=== PATIENT | male | born 1950 | race Caucasian/White ===

== ENCOUNTER 2021-06-26 12:50 | Inpatient (IN) ==
[2021-06-26] MEDS ORDERED: *HR* FentaNYL (PF) 100 MCG/2 ML VIAL IVP ONE (13:20)
[2021-06-26] MEDS ORDERED: Isovue-370 500 ML BOTTLE IVP ONE (14:08)
[2021-06-26 14:32] LABS: Basophils % 0.2 %; Eosinophils % 0.2 %; Hematocrit 44.1 % (37.5-50.1); Hemoglobin 14.9 g/dL (12.9-16.9); Immature Granulocytes % 0.4 % (0-4); Lymphocytes # 1.2 K/mcL (0.6-4.6); Lymphocytes % 14.2 %; Mean Corpuscular HGB Conc 33.8 g/dL (31.6-35.5); Mean Corpuscular Hemoglobin 32.6 pg (28.0-33.3); Mean Corpuscular Volume 96.5 fL (83.0-100.0); Mean Platelet Volume 8.8 fL (9.4-12.4); Monocytes % 12.4 %; Platelet Count 238 K/mcL (140-400); Red Blood Count 4.57 M/mcL (4.19-5.50); Red Cell Distribution Width 12.7 % (11.5-14.5); Segmented Neutrophils % 72.6 %; White Blood Count 8.3 K/mcL (4.3-11.1)
[2021-06-26 14:52] LABS: BUN/Creatinine Ratio 12 (6-26); Blood Urea Nitrogen 11 mg/dL (8-23); Calcium 9.2 mg/dL (8.6-10.3); Carbon Dioxide 24 mEq/L (23-29); Chloride 96 mEq/L (98-107); Glucose 122 mg/dL (70-105); Osmolality,Calculated 271 (280-300); Potassium 4.8 mEq/L (3.5-5.1); Sodium 130 mEq/L (136-145); eGFR For African Americans > 60 (> 60); eGFR For Non-African Americans > 60 (> 60)
[2021-06-26] MEDS ORDERED: Morphine Sulfate 2 MG/ML SYRINGE IVP ONE (15:19)
[2021-06-26] MEDS ORDERED: Naloxone 0.4 MG/ML INJ IVP PRN (17:25)
[2021-06-26] MEDS ORDERED: Ondansetron 4 MG/2 ML VIAL IVP PRN (17:25)
[2021-06-26] MEDS ORDERED: Ipratropium/Albuterol Neb 3 ML IH PRN (17:43)
[2021-06-26] MEDS: *HR* Heparin 5,000 UNIT/ML VIAL SQ SCH (19:22)
[2021-06-26] MEDS: Ketorolac 30 MG/ML VIAL IVP PRN (19:31)
[2021-06-27] MEDS: Morphine Sulfate 2 MG/ML SYRINGE IVP PRN ×3 (00:47→11:45)
[2021-06-27 03:56] LABS: Basophils % 0.5 %; Eosinophils # 0.1 K/mcL (0.0-0.6); Eosinophils % 2.2 %; Hematocrit 39.9 % (37.5-50.1); Immature Granulocytes % 0.5 % (0-4); Lymphocytes # 1.2 K/mcL (0.6-4.6); Lymphocytes % 20.7 %; Mean Corpuscular HGB Conc 32.8 g/dL (31.6-35.5); Mean Corpuscular Hemoglobin 32.2 pg (28.0-33.3); Mean Platelet Volume 8.9 fL (9.4-12.4); Monocytes % 15.8 %; Neutrophils # 3.6 K/mcL (1.6-8.9); Platelet Count 208 K/mcL (140-400); Red Blood Count 4.07 M/mcL (4.19-5.50); Red Cell Distribution Width 12.7 % (11.5-14.5); Segmented Neutrophils % 60.3 %
[2021-06-27 03:58] LABS: Hemoglobin 13.1 g/dL (12.9-16.9)
[2021-06-27 04:14] LABS: BUN/Creatinine Ratio 14 (6-26); Blood Urea Nitrogen 13 mg/dL (8-23); Carbon Dioxide 27 mEq/L (23-29); Chloride 100 mEq/L (98-107); Glucose 113 mg/dL (70-105); Magnesium 1.9 mg/dL (1.6-2.6); Osmolality,Calculated 277 (280-300); Phosphorous 3.2 mg/dL (2.7-4.5); Potassium 3.9 mEq/L (3.5-5.1); Sodium 133 mEq/L (136-145); eGFR For African Americans > 60 (> 60); eGFR For Non-African Americans > 60 (> 60)
[2021-06-27] MEDS: *HR* Heparin 5,000 UNIT/ML VIAL SQ SCH ×2 (05:19→17:02)
[2021-06-27] MEDS ORDERED: Loratadine 10 MG TABLET PO PRN (07:36)
[2021-06-27] MEDS ORDERED: Patient Taking Own Medication 1 EACH TP PRN (07:36)
[2021-06-27] MEDS: Cholecalciferol (D-3) 1,000 UNIT (25MCG) TABLET PO SCH (09:44)
[2021-06-27] MEDS: allopurinoL 300 MG TABLET PO SCH (09:44)
[2021-06-27] MEDS: Patient Taking Own Medication 1 EACH OP SCH ×3 (09:45→19:58)
[2021-06-27] MEDS: *HR* OxyCODONE Immed Rel 5 MG TABLET PO PRN ×2 (15:49→19:59)
[2021-06-28] MEDS: *HR* OxyCODONE Immed Rel 5 MG TABLET PO PRN ×4 (00:37→19:36)
[2021-06-28] MEDS: *HR* Heparin 5,000 UNIT/ML VIAL SQ SCH ×2 (05:03→16:26)
[2021-06-28] MEDS: Cholecalciferol (D-3) 1,000 UNIT (25MCG) TABLET PO SCH (08:10)
[2021-06-28] MEDS: allopurinoL 300 MG TABLET PO SCH (08:11)
[2021-06-28] MEDS: Patient Taking Own Medication 1 EACH OP SCH ×3 (08:11→19:37)
[2021-06-28] MEDS: Ketorolac 30 MG/ML VIAL IVP PRN ×2 (08:17→16:42)
[2021-06-29] MEDS: *HR* OxyCODONE Immed Rel 5 MG TABLET PO PRN ×2 (03:17→07:59)
[2021-06-29] MEDS: *HR* Heparin 5,000 UNIT/ML VIAL SQ SCH (05:01)
[2021-06-29] MEDS: Cholecalciferol (D-3) 1,000 UNIT (25MCG) TABLET PO SCH (07:58)
[2021-06-29] MEDS: Patient Taking Own Medication 1 EACH OP SCH ×2 (07:59→12:33)
[2021-06-29] MEDS: allopurinoL 300 MG TABLET PO SCH (07:59)
[2021-06-29] MEDS ORDERED: *HR* OxyCODONE Immed Rel 5 MG TABLET PO PRN (10:51)
[2021-06-29 14:19] LABS: Influenza A PCR Negative (Negative); Influenza B PCR Negative (Negative); Resp. Syncytial Virus PCR Negative (Negative)
[2021-06-29 15:23] LABS: SARS-CoV-2 by PCR (In House) Negative (Negative)
[2021-06-29 16:26] VITALS: BP 105/41; PULSE 74; TEMP 97.4; O2SAT 95
== END 2021-06-29 17:33 | DRG 184 ==
LOC: 2ANU 12:50 → EMEROOARM 12:50 → SUATTDRO 17:49 → 3BNU 17:58
PROVIDERS: ADMIT Student in an Organized Health Care Education/Training Program; ATTEND Internal Medicine